=== PATIENT | male | born 1970 | race Two or more races ===

== ENCOUNTER 2016-09-23 20:10 | Emergency (ER) | payer MEDICAID, OTHER ==
[~2016-09-23] VITALS: Ht 172.7 cm; Wt 79.4 kg
--- NOTE | 2016-09-23 19:54 | Emergency Room Report ---
History of Present Illness General Chief Complaint: Alcohol Intoxication Source: Patient, EMS (Jacobo Brooks) Present Illness HPI Patient presented for altered mental status. The patient gradual onset of symptoms. Patient was noted to have recent alcohol intake. Patient had prior similar symptoms. Patient was brought in by EMS. (Jacobo Brooks) Allergies: Coded Allergies: No Known Allergies (Unverified , 01/09/16) Patient History Past Medical History: see triage record Reviewed Nursing Documentation: PMH: Agreed, PSxH: Agreed (Jacobo Brooks) Nursing Documentation-PMH Past Medical History: No History, Except For (Jacobo Brooks) Review of Systems All Other Systems: limited - by mental status (Jacobo Brooks) Physical Exam Vital Signs Date Time Temp Pulse Resp B/P Pulse Ox O2 Delivery O2 Flow Rate FiO2 09/23/16 19:40 86 18 131/80 99 Room Air Sp02 EP Interpretation: reviewed, normal General Appearance: normal inspection, well appearing, no apparent distress, alert, GCS 15, non-toxic Head: atraumatic ENT: normal ENT inspection, hearing grossly normal, normal voice Neck: normal inspection, full range of motion, supple, no bony tend Respiratory: normal inspection, lungs clear, normal breath sounds, no respiratory distress, no retraction, no wheezing Cardiovascular #1: regular rate, rhythm, no edema Gastrointestinal: normal inspection, normal bowel sounds, non tender, soft, no guarding, no hernia Genitourinary: no CVA tenderness Musculoskeletal: normal inspection, back normal, normal range of motion Neurologic: normal inspection, alert, oriented x3, responsive, speech normal Psychiatric: normal inspection, judgement/insight normal, mood/affect normal Skin: normal inspection, normal color, no rash (Jacobo Brooks) Medical Decision Making Diagnostic Impression: Primary Impression: Acute alcoholic intoxication ER Course Patient presented for altered mental status. Differential diagnosis included but was not limited to ischemic stroke, alcohol intoxication, subarachnoid hemorrhage, hypoglycemia, spinal cord injury, neurodegenerative disorder, urinary tract infection, hypoxemia. Patient appears be intoxicated with alcohol. Patient was observed in the emergency department. He had gradual improvement in his mental status. (Jacobo Brooks) ER Course Patient ambulated to bathroom without ataxia. Denies SI or HI. @ 4:20. (Mello Mauricio M.D.) Last Vital Signs Date Time Temp Pulse Resp B/P Pulse Ox O2 Delivery O2 Flow Rate FiO2 09/23/16 19:40 86 18 131/80 99 Room Air (Jacobo Brooks) Status: improved (Mello Mauricio M.D.) Disposition: HOME, SELF-CARE Condition: Improved Jacobo Brooks Sep 23, 2016 19:54 Mello Mauricio M.D. Sep 24, 2016 04:26
[~2016-09-23 20:10] MED LIST: RANITIDINE HCL150 MG ORAL; ZOFRAN ODT4 MG ORAL
[2016-09-24 01:04] LABS: MEAN CORPUSCULAR HEMOGLOBIN 32.6 PG (27.0-31.0); MEAN CORPUSCULAR HGB CONC 32.6 G/DL (32.0-36.0); MEAN CORPUSCULAR VOLUME 100 FL (80-99); MEAN PLATELET VOLUME 5.2 FL (6.5-10.1); PLATELET COUNT 256 K/UL (150-450); RED BLOOD COUNT 4.48 M/UL (4.70-6.10); RED CELL DISTRIBUTION WIDTH 13.6 % (11.6-14.8); WHITE BLOOD COUNT 3.7 K/UL (4.8-10.8)
[2016-09-24 01:17] LABS: ALANINE AMINOTRANSFERASE 60 U/L (3-41); ALBUMIN/GLOBULIN RATIO 1.6 (1.0-2.7); ANION GAP 20 (5-15); ASPARTATE AMINO TRANSFERASE 69 U/L (5-40); CALCIUM 8.7 mg/dL (8.6-10.2); CARBON DIOXIDE 25 mEQ/L (20-30); CHLORIDE 100 mEQ/L (98-107); CREATININE 0.8 mg/dL (0.7-1.2); GLOMERULAR FILTRATION RATE > 60 mL/min (>60); HEMOLYSIS 8; POTASSIUM 3.8 mEQ/L (3.4-4.9); SODIUM 145 mEQ/L (135-145); TOTAL PROTEIN 7.1 g/dL (6.6-8.7)
[2016-09-24 02:01] VITALS: BP 131/80
[2016-09-24 06:31] VITALS: BP 131/80
== END 2016-09-24 06:30 | disposition home or self-care (01) ==
LOC: EDBD 20:10 → EMR 22:02
DX: F10.129 Alcohol abuse with intoxication, unspecified (principal)
CPT/HCPCS: 36415; 80053; 80329; 85025; 96360

== ENCOUNTER 2016-12-21 09:55 | Emergency (ER) | payer OTHER ==
[~2016-12-21] VITALS: Ht 177.8 cm; Wt 68.0 kg
--- NOTE | 2016-12-21 10:10 | Emergency Room Report ---
History of Present Illness General Chief Complaint: Abdominal Pain Source: Patient, EMS Present Illness HPI This patient is brought in by EMS. He has a history of alcoholism and is homeless. He complains of abdominal pain in epigastric region for the past 5 or 6 hours. He admits that he did drink a large amount of alcohol. He is unsure how much. EMS report an empty bottle of vodka where they picked him up. Denies vomiting. He denies fever or chills. He has no other complaints. Allergies: Coded Allergies: No Known Allergies (Unverified , 01/09/16) Patient History Past Medical History: see triage record, HTN, other - ETOH abuse Social History: Reports: alcohol use, Denies: drug use, smoking Reviewed Nursing Documentation: PMH: Agreed, PSxH: Agreed Nursing Documentation-PMH Past Medical History: No History, Except For Hx Hypertension: Yes Review of Systems All Other Systems: negative except mentioned in HPI Physical Exam Vital Signs Date Time Temp Pulse Resp B/P Pulse Ox O2 Delivery O2 Flow Rate FiO2 12/21/16 09:48 97.5 56 16 143/87 98 Room Air Sp02 EP Interpretation: reviewed, normal General Appearance: no apparent distress, alert, GCS 15, non-toxic, other - Discheveled, poor hygiene Head: normocephalic, atraumatic Eyes: bilateral eye PERRL, bilateral eye normal inspection ENT: hearing grossly normal, normal pharynx, no angioedema, normal voice Neck: full range of motion, supple/symm/no masses Respiratory: chest non-tender, lungs clear, normal breath sounds, no respiratory distress, no retraction, no accessory muscle use, speaking full sentences Cardiovascular #1: regular rate, rhythm, no edema Gastrointestinal: normal bowel sounds, soft, non-distended, no guarding, no rebound, tenderness - TTP in the epigastrium Rectal: deferred Musculoskeletal: back normal, gait/station normal, normal range of motion, non- tender Neurologic: alert, oriented x3, responsive, motor strength/tone normal, sensory intact, speech normal Psychiatric: judgement/insight normal, memory normal, mood/affect normal, no suicidal/homicidal ideation Skin: normal color, no rash, warm/dry, well hydrated Medical Decision Making Diagnostic Impression: Primary Impression: Alcohol abuse Additional Impressions: Gastritis Transaminitis ER Course This patient is a homeless male who presents with epigastric pain after drinking a bottle of vodka. The patient was able to have a history and although smelled of alcohol and has poor hygiene was articulate and able to carry on a conversation. The history was most consistent with a gastritis or pancreatitis, I did obtain basic labs to include CBC, CMP and lipase which showed elevated liver function tests consistent with alcohol abuse. Lipase was within normal limits. The patient had improvement with treatment for gastritis with Mylanta making. The patient was instructed to decrease alcohol intake. At this time, I do not suspect appendicitis or serious bacterial infection. The patient's given return precautions and followup instructions. Patient is also given the local [facility] clinics and the local shelters. Labs Test 12/21/16 10:25 White Blood Count 4.1 K/UL (4.8-10.8) Red Blood Count 4.53 M/UL (4.70-6.10) Hemoglobin 14.8 G/DL (14.2-18.0) Hematocrit 46.1 % (42.0-52.0) Mean Corpuscular Volume 102 FL (80-99) Mean Corpuscular Hemoglobin 32.6 PG (27.0-31.0) Mean Corpuscular Hemoglobin Concent 32.1 G/DL (32.0-36.0) Red Cell Distribution Width 13.1 % (11.6-14.8) Platelet Count 102 K/UL (150-450) Mean Platelet Volume 6.1 FL (6.5-10.1) Neutrophils (%) (Auto) 60.3 % (45.0-75.0) Lymphocytes (%) (Auto) 32.7 % (20.0-45.0) Monocytes (%) (Auto) 6.0 % (1.0-10.0) Eosinophils (%) (Auto) 0.3 % (0.0-3.0) Basophils (%) (Auto) 0.7 % (0.0-2.0) Sodium Level 145 mEQ/L (135-145) Potassium Level 4.0 mEQ/L (3.4-4.9) Chloride Level 98 mEQ/L (98-107) Carbon Dioxide Level 32 mEQ/L (20-30) Anion Gap 15 (5-15) Blood Urea Nitrogen 13 mg/dL (7-23) Creatinine 0.8 mg/dL (0.7-1.2) Estimat Glomerular Filtration Rate > 60 mL/min (>60) Glucose Level 103 mg/dL (74-106) Calcium Level 9.0 mg/dL (8.6-10.2) Total Bilirubin 0.6 mg/dL (0.0-1.2) Aspartate Amino Transf (AST/SGOT) 179 U/L (5-40) Alanine Aminotransferase (ALT/SGPT) 172 U/L (3-41) Alkaline Phosphatase 96 U/L (40-129) Total Protein 7.4 g/dL (6.6-8.7) Albumin 4.2 g/dL (3.5-5.2) Globulin 3.2 g/dL Albumin/Globulin Ratio 1.3 (1.0-2.7) Lipase 54 U/L (< 60) Last Vital Signs Date Time Temp Pulse Resp B/P Pulse Ox O2 Delivery O2 Flow Rate FiO2 12/21/16 09:48 97.5 56 16 143/87 98 Room Air Disposition: HOME, SELF-CARE Condition: Improved Patient Instructions: Gastritis, Adult CHASE AGUIAR D.O. Dec 21, 2016 10:10
[2016-12-21] MEDS ORDERED: Lidocaine 2% Visc 15ml soln ORAL ONE (10:15)
[2016-12-21 10:40] LABS: BASOPHILS % (AUTO) 0.7 % (0.0-2.0); EOSINOPHILS % (AUTO) 0.3 % (0.0-3.0); LYMPHOCYTES % (AUTO) 32.7 % (20.0-45.0); MEAN CORPUSCULAR HEMOGLOBIN 32.6 PG (27.0-31.0); MEAN CORPUSCULAR HGB CONC 32.1 G/DL (32.0-36.0); MEAN CORPUSCULAR VOLUME 102 FL (80-99); MEAN PLATELET VOLUME 6.1 FL (6.5-10.1); NEUTROPHILS % (AUTO) 60.3 % (45.0-75.0); PLATELET COUNT 102 K/UL (150-450); RED BLOOD COUNT 4.53 M/UL (4.70-6.10); RED CELL DISTRIBUTION WIDTH 13.1 % (11.6-14.8); WHITE BLOOD COUNT 4.1 K/UL (4.8-10.8)
[2016-12-21 10:56] LABS: ALANINE AMINOTRANSFERASE 172 U/L (3-41); ALBUMIN/GLOBULIN RATIO 1.3 (1.0-2.7); ANION GAP 15 (5-15); ASPARTATE AMINO TRANSFERASE 179 U/L (5-40); CARBON DIOXIDE 32 mEQ/L (20-30); CHLORIDE 98 mEQ/L (98-107); CREATININE 0.8 mg/dL (0.7-1.2); GLOMERULAR FILTRATION RATE > 60 mL/min (>60); HEMOLYSIS 13; LIPASE 54 U/L (< 60); SODIUM 145 mEQ/L (135-145); TOTAL PROTEIN 7.4 g/dL (6.6-8.7)
[2016-12-21] MEDS ORDERED: PRILOSEC OTC20 MG ORAL (12:10)
[2016-12-21 13:07] VITALS: BP 1/1
[2016-12-22] MEDS ORDERED: NKM (20:04)
== END 2016-12-21 13:09 | disposition home or self-care (01) ==
LOC: EDBD 09:55 → EMR 10:18
DX: F10.10 Alcohol abuse, uncomplicated (principal); K29.00 Acute gastritis without bleeding; R74.0 Nonspecific elevation of levels of transaminase and lactic acid dehydrogenase [LDH]; I10 Essential (primary) hypertension; Z59.0 Homelessness
CPT/HCPCS: 36415; 80053; 83690; 85025; 99284

== ENCOUNTER 2016-12-22 20:02 | Emergency (ER) | payer OTHER ==
[~2016-12-22] VITALS: Ht 170.2 cm; Wt 74.8 kg
[~2016-12-22 20:02] MED LIST changes: +PRILOSEC OTC20 MG ORAL
[2016-12-22] MEDS ORDERED: NKM (20:04)
[2016-12-22 20:25] VITALS: BP 139/84
[2016-12-22] MEDS ORDERED: Lidocaine 2% Visc 15ml soln ORAL ONE (20:30)
[2016-12-22] MEDS ORDERED: Mylanta II UD 30ml ORAL ONE (20:30)
--- NOTE | 2016-12-22 20:45 | Emergency Room Report ---
History of Present Illness General Chief Complaint: Flu Like Symptoms Source: Patient Present Illness HPI [id number] [address] [facility]IBEMS with hiccups, abd pain, drinking alcohol. Denies trauma Denies fever/chills, chest pain, SOB, vomiting, diarrhea Was here yesterday for same Labs were unremarkable except for mild elevation LFTs, likly from ETOH chronic abuse Allergies: Coded Allergies: No Known Allergies (Unverified , 01/09/16) Patient History Past Medical History: none Past Surgical History: none Pertinent Family History: none Social History: Reports: alcohol use Immunizations: UTD Reviewed Nursing Documentation: PMH: Agreed, PSxH: Agreed Nursing Documentation-PMH Hx Hypertension: Yes Review of Systems All Other Systems: negative except mentioned in HPI Physical Exam Vital Signs Date Time Temp Pulse Resp B/P Pulse Ox O2 Delivery O2 Flow Rate FiO2 12/22/16 19:58 98.1 100 16 136/89 97 Room Air Sp02 EP Interpretation: reviewed, normal General Appearance: normal inspection, well appearing, no apparent distress, alert, GCS 15, non-toxic, other - +AOB, disheveled, malodorous Head: normocephalic, atraumatic Eyes: bilateral eye EOMI, bilateral eye PERRL ENT: normal ENT inspection, hearing grossly normal, normal voice Neck: normal inspection, full range of motion, supple, no bony tend Respiratory: normal inspection, lungs clear, normal breath sounds, no respiratory distress, no retraction, no wheezing Cardiovascular #1: regular rate, rhythm, no edema Gastrointestinal: normal inspection, normal bowel sounds, soft, no guarding, no hernia, other - mild epigastric ttp Genitourinary: no CVA tenderness Musculoskeletal: normal inspection, back normal, normal range of motion, Anuradha' s Sign negative Neurologic: normal inspection, alert, oriented x3, responsive, kosher inspector III-XII nml as tested, motor strength/tone normal, speech normal Psychiatric: normal inspection, judgement/insight normal, mood/affect normal Skin: normal inspection, normal color, no rash, warm/dry Lymphatic: normal inspection Medical Decision Making Diagnostic Impression: Primary Impression: Acute alcoholic intoxication Qualified Codes: F10.920 - Alcohol use, unspecified with intoxication, uncomplicated Additional Impression: Gastritis Qualified Codes: K29.20 - Alcoholic gastritis without bleeding ER Course Chronic episodic ETOH abuse Recurrent gastritis I see no reason to repeat labs done yesterday which were unremarkable VS stable again today Afebrile Atraumatic No sign of PNA, other infectious process Was given GI cocktail with improvement Endorsed to Dr Mauricio to DC with sobriety Last Vital Signs Date Time Temp Pulse Resp B/P Pulse Ox O2 Delivery O2 Flow Rate FiO2 12/22/16 20:28 61 16 Room Air 12/22/16 20:25 98.7 139/84 98 Status: improved Disposition: HOME, SELF-CARE MAURI MUÑOZ M.D. Dec 22, 2016 20:45
[2016-12-22 22:30] VITALS: BP 128/82
[2016-12-23 01:36] VITALS: BP 118/84
[2016-12-23 04:30] VITALS: BP 120/86
[2016-12-23 04:42] VITALS: BP 120/86
== END 2016-12-23 04:45 | disposition home or self-care (01) ==
LOC: EDBD 20:02 → EMR 20:30
DX: F10.129 Alcohol abuse with intoxication, unspecified (principal); K29.70 Gastritis, unspecified, without bleeding; I10 Essential (primary) hypertension
CPT/HCPCS: 99283

== ENCOUNTER 2017-11-13 14:52 | Emergency (ER) | payer OTHER ==
[~2017-11-13] VITALS: Ht 167.6 cm; Wt 70.3 kg
[~2017-11-13 14:52] MED LIST changes: +NKM
[2017-11-13 14:57] VITALS: BP 142/89
--- NOTE | 2017-11-13 15:21 | Emergency Room Report ---
History of Present Illness General Chief Complaint: Alcohol Intoxication Source: EMS Present Illness HPI 47-year-old male presents ED status post EtOH intoxication. Patient found on the streets. Bystanders called 911. Patient brought in by EMS. [place] [facility] [place] been here multiple times for alcohol intoxication. Per EMS patient had a few episodes of vomiting. Patient has dried blood from his left naris. Unclear whether patient sustained injury. Patient cannot provide any additional history at this time. Other aggravating relieving factors. No other associated symptoms Allergies: Coded Allergies: No Known Allergies (Unverified , 01/09/16) Patient History Past Medical History: HTN Past Surgical History: none Pertinent Family History: none Social History: Reports: alcohol use; Denies: smoking, drug use Immunizations: UTD Reviewed Nursing Documentation: PMH: Agreed; PSxH: Agreed Nursing Documentation-PMH Past Medical History: No History, Except For Hx Hypertension: Yes History Of Psychiatric Problem: Yes - etoh abuse Review of Systems All Other Systems: negative except mentioned in HPI Physical Exam Vital Signs Date Time Temp Pulse Resp B/P (MAP) Pulse Ox O2 Delivery O2 Flow Rate FiO2 11/13/17 14:48 98.6 70 20 142/89 94 Room Air 98.6 Sp02 EP Interpretation: reviewed, normal General Appearance: other - intoxicated Head: normocephalic, other - dried blood on left side of face, L nares ENT: normal ENT inspection Neck: normal inspection Respiratory: chest non-tender, lungs clear, normal breath sounds, speaking full sentences Cardiovascular #1: regular rate, rhythm, no edema Gastrointestinal: normal bowel sounds, non tender, soft, non-distended, no guarding, no rebound Rectal: deferred Genitourinary: no CVA tenderness Musculoskeletal: normal inspection Neurologic: other - intoxicated Psychiatric: other - intoxicated Skin: normal inspection Lymphatic: normal inspection Medical Decision Making Diagnostic Impression: Primary Impression: Acute alcoholic intoxication Qualified Codes: F10.929 - Alcohol use, unspecified with intoxication, unspecified ER Course Hospital Course 47 yo M presents to ED s/p ETOH intoxication. ? fall Clinical course Patient placed on stretcher. After initial history and physical I ordered IV fluids, Zofran, CT head CT head unremarkable Patient allowed to sleep. My assessment shows no evidence of SI/HI requiring psychiatric evaluation. Patient allowed to rest in now awake alert oriented x3. ambulating without difficulty. Diagnosis - ETOH intoxication stable and discharged to home. Followup with PMD. Return to ED if symptoms recur or worsen CT/MRI/US Diagnostic Results CT/MRI/US Diagnostic Results : Imaging Test Ordered: CT Head Impression no acute process Last Vital Signs Date Time Temp Pulse Resp B/P (MAP) Pulse Ox O2 Delivery O2 Flow Rate FiO2 11/13/17 14:57 70 20 142/89 94 Room Air 11/13/17 14:48 98.6 98.6 Status: improved Disposition: HOME, SELF-CARE Condition: Stable Referrals: [facility]ERR[facility] (PCP) Daron Croft MD Nov 13, 2017 15:21
--- NOTE | 2017-11-13 15:43 | Diagnostic Imaging Report ---
Indications: Altered mental status Technique: Spiral acquisitions obtained through the brain. Angled axial and coronal 5 x 5 mm slices were reconstructed. Total dose length product 1302.19 mGycm. CTDI vol(s) 70.38 mGy. Dose reduction achieved using automated exposure control Comparison: 05/31/2011 Findings: There is some image degradation due to patient motion artifact. There is bilateral frontal lobe cortical volume loss again demonstrated. This appears slightly progressive. No acute intracranial hemorrhage or edema, mass effect, nor midline shift. Normal duarte-white differentiation. Intact calvarium. There is bilateral maxillary sinus, left sphenoid, and minimal bilateral ethmoid sinus mucosal disease. There is minimal scalp contusion at the vertex bilaterally. Impression: Slightly limited exam due to motion artifact No evidence of acute intracranial bleed or mass effect Evidence of high bilateral frontal scalp soft tissue injury Bilateral frontal volume loss, out of proportion to age Sinus disease The CT scanner at [facility] is accredited by the [employer] and the scans are performed using protocols designed to limit radiation exposure to as low as reasonably achievable to attain images of sufficient resolution adequate for diagnostic evaluation.
[2017-11-13 21:11] VITALS: BP 138/79
== END 2017-11-13 19:05 | disposition home or self-care (01) ==
LOC: EDBD 14:52 → EMR 15:02
DX: F10.929 Alcohol use, unspecified with intoxication, unspecified (principal); I10 Essential (primary) hypertension
CPT/HCPCS: 70450; 96360; 96374; 96375; 99284; J2405

== ENCOUNTER 2018-08-16 16:04 | Emergency (ER) | payer OTHER ==
[~2018-08-16] VITALS: Ht 172.7 cm; Wt 74.8 kg
[2018-08-16 16:05] VITALS: BP 118/65
--- NOTE | 2018-08-16 16:05 | NUR ---
ED Nurse Note: Patient brought in by ambulance c/o ETOH, EMS state that they found the patient sleeping outide of ross to which the store operations associate called 911, upon arrival patient is sleeping. Patient's blood sugar was 90, notified
--- NOTE | 2018-08-16 16:40 | NUR ---
[place] [facility] [place] but no bed avilable at this time
--- NOTE | 2018-08-16 17:17 | Diagnostic Imaging Report ---
Indications: Altered mental status Technique: Spiral acquisitions obtained through the brain. Angled axial and coronal 5 x 5 mm slices were reconstructed. Total dose length product 1417.99 mGycm. CTDI vol(s) 70.38 mGy. Dose reduction achieved using automated exposure control Comparison: None. Findings: There is a subdural hematoma which measures up to 6 mm in thickness is overlying the left frontal and anterior parietal convexities, also extending slightly over the anterior left temporal lobe.. This is isoattenuating to white matter. This results in only minimal local mass effect, inwardly distressing the cortex slightly. No other acute intracranial hemorrhage. No edema or mass effect elsewhere. There is a small high left parietal scalp hematoma, just to the left of and posterior to the vertex There is generalized enlargement of the ventricles and extra axial CSF spaces which is somewhat striking for patient's age. The duarte-white differentiation is normal. Empty sella is incidentally noted. The calvarium is intact. The visualized orbits are unremarkable. There is minimal left-sided ethmoid and sphenoid sinus disease. The mastoids are clear. Impression: Positive for 6 mm thick subacute left convexity subdural hematoma. This results in local mass effect Cortical bone loss, out of proportion to age High left parietal scalp hematoma Critical value findings phoned to Dr. Croft in the emergency room at the time of interpretation The CT scanner at [facility] is accredited by the [employer] and the scans are performed using protocols designed to limit radiation exposure to as low as reasonably achievable to attain images of sufficient resolution adequate for diagnostic evaluation.
[2018-08-16 17:31] VITALS: BP 141/92
--- NOTE | 2018-08-16 17:35 | NUR ---
ED Nurse Note: Pt AOx2 (name/ place) at this time, present with slurred speech and delayed speech at times. Seisure precaution applied, monitor attached. Will cont to monitor.
--- NOTE | 2018-08-16 17:40 | NUR ---
ED Nurse Note: Blood drawn and sent to lab.
[2018-08-16 17:53] LABS: BASOPHILS % (AUTO) 1.4 % (0.0-2.0); EOSINOPHILS % (AUTO) 2.1 % (0.0-3.0); HEMATOCRIT 36.8 % (42.0-52.0); HEMOGLOBIN 11.9 G/DL (14.2-18.0); LYMPHOCYTES % (AUTO) 42.9 % (20.0-45.0); MEAN CORPUSCULAR VOLUME 95 FL (80-99); MONOCYTES % (AUTO) 4.8 % (1.0-10.0); NEUTROPHILS % (AUTO) 48.8 % (45.0-75.0); PLATELET COUNT 245 K/UL (150-450); RED BLOOD COUNT 3.85 M/UL (4.70-6.10); RED CELL DISTRIBUTION WIDTH 16.5 % (11.6-14.8); WHITE BLOOD COUNT 5.9 K/UL (4.8-10.8)
[2018-08-16 18:06] LABS: INR 0.9 (0.9-1.1)
[2018-08-16 18:14] LABS: ANION GAP 12 mmol/L (5-15); BLOOD UREA NITROGEN 11 mg/dL (7-18); CALCIUM 8.5 MG/DL (8.5-10.1); CARBON DIOXIDE 27 MMOL/L (21-32); CHLORIDE 109 MMOL/L (98-107); CREATININE 0.7 MG/DL (0.55-1.30); POTASSIUM 3.5 MMOL/L (3.5-5.1); SODIUM 148 MMOL/L (136-145)
[2018-08-16] MEDS ORDERED: levETIRAcetam 500 MG in D5W 110 ML IV ONE (18:15)
[2018-08-16 18:19] LABS: ALANINE AMINOTRANSFERASE 40 U/L (12-78); ALBUMIN 3.3 G/DL (3.4-5.0); ALBUMIN/GLOBULIN RATIO 0.9 (1.0-2.7); ALKALINE PHOSPHATASE 90 U/L (46-116); ASPARTATE AMINO TRANSFERASE 41 U/L (15-37); BILIRUBIN,TOTAL 0.2 MG/DL (0.2-1.0)
--- NOTE | 2018-08-16 18:59 | NUR ---
ED Nurse Note: Confirmed with ERMD that pt will be sent home when being sober.
--- NOTE | 2018-08-16 19:12 | NUR ---
HAND-OFF: Report given to TONY Dee. waiting for pt to be sober and dc home.
--- NOTE | 2018-08-16 19:30 | NUR ---
ED Nurse Note: RECIEVED REPORT TO RESUME CARE, PT IN BED SLEEPING, AROUSES TO TACTILE STIMULI, PT IS ON CARDIAC MONITORING, V/S STABLE, O2 SAT=98% ON 2L N/C, PT IS LETHARGIC AND DROWSY WHEN AWAKENED, DENEIS PAIN, NO SOB OR LABORED BREATHING NOTED, PT TO BE DISCHARGED WHEN AWAKENED AND SOBER, WILL CONTINUE TO CLOSELY MONITOR.
[2018-08-16 20:00] VITALS: BP 120/71
--- NOTE | 2018-08-16 20:06 | Emergency Room Report ---
History of Present Illness General Chief Complaint: Alcohol Intoxication Source: EMS Present Illness HPI 47-year-old male presents ED for evaluation. Patient brought in by EMS altered. Found on the ground with empty alcohol bottles today. Bystander called 911. Upon arrival patient is lethargic. No answer any questions. No signs of distress. No other aggravating relieving factors. No other associated symptoms Allergies: Coded Allergies: UNABLE TO ASSESS (Unverified , 08/16/18) Patient History Past Medical History: none Past Surgical History: none Pertinent Family History: none Social History: Reports: alcohol use; Denies: smoking, drug use Reviewed Nursing Documentation: PMH: Agreed; PSxH: Agreed Nursing Documentation-PMH Past Medical History Deferred: Patient Unconscious Review of Systems All Other Systems: limited Physical Exam Vital Signs Date Time Temp Pulse Resp B/P (MAP) Pulse Ox O2 Delivery O2 Flow Rate FiO2 08/16/18 15:59 98.1 88 16 118/65 98 08/16/18 17:31 Room Air Sp02 EP Interpretation: reviewed, normal General Appearance: no apparent distress, lethargic Head: normocephalic Eyes: bilateral eye normal inspection, bilateral eye PERRL ENT: normal ENT inspection Neck: normal inspection Respiratory: chest non-tender, lungs clear, normal breath sounds, speaking full sentences Cardiovascular #1: regular rate, rhythm, no edema Gastrointestinal: normal bowel sounds, non tender, soft, non-distended, no guarding, no rebound Rectal: deferred Genitourinary: no CVA tenderness Musculoskeletal: normal inspection Neurologic: other - intoxicated Psychiatric: other - intoxicated Skin: normal inspection Lymphatic: normal inspection Medical Decision Making Diagnostic Impression: Primary Impression: Acute alcoholic intoxication Qualified Codes: F10.929 - Alcohol use, unspecified with intoxication, unspecified Additional Impression: Subdural hematoma, chronic ER Course Hospital Course 48-year-old M presents to ED with altered mental status. Found down with alcohol bottles Differential diagnoses include: Psychosis, EtOH, drug abuse Clinical course patient placed on stretcher. On equipment monitor phototypesetting. After initial history and physical ordered CT head CT head shows chronic subdural with mass effect Patient has no focal neurological deficits, no obvious lateralizing signs. I ordered labs, IV fluids EKGnormal sinus rhythm no acute changes interpreted by me Labs reviewed-electrolytes okay, no leukocytosis, hemoglobin/hematocrit stable, ETOH elevated I discussed with neurosurgery at [facility]. They state that patient was admitted overnight for observation yesterday because of the chronic subdural finding. per neurosurgery, our CT findings are identical. Patient left AMA this morning before he could receive his Keppra prescription Given that this finding is chronic and patient has already received a 24-hour neuro observation I believe patient can be discharged once clinically sober. Given IV Keppra here i. I feel this is a highly complex case requiring extensive working including EKG/Rhythm strip, Xray/CT/US, Blood/urine lab work, repeat exams while in ED, and administration of strong opiates/narcotics for pain control, admission to hospital or close patient follow up. signed out to Dr Castellanos pending sobriety Labs Test 08/16/18 17:35 White Blood Count 5.9 K/UL (4.8-10.8) Red Blood Count 3.85 M/UL (4.70-6.10) Hemoglobin 11.9 G/DL (14.2-18.0) Hematocrit 36.8 % (42.0-52.0) Mean Corpuscular Volume 95 FL (80-99) Mean Corpuscular Hemoglobin 30.9 PG (27.0-31.0) Mean Corpuscular Hemoglobin Concent 32.3 G/DL (32.0-36.0) Red Cell Distribution Width 16.5 % (11.6-14.8) Platelet Count 245 K/UL (150-450) Mean Platelet Volume 5.3 FL (6.5-10.1) Neutrophils (%) (Auto) 48.8 % (45.0-75.0) Lymphocytes (%) (Auto) 42.9 % (20.0-45.0) Monocytes (%) (Auto) 4.8 % (1.0-10.0) Eosinophils (%) (Auto) 2.1 % (0.0-3.0) Basophils (%) (Auto) 1.4 % (0.0-2.0) Prothrombin Time 9.6 SEC (9.30-11.50) Prothromb Time International Ratio 0.9 (0.9-1.1) Activated Partial Thromboplast Time 23 SEC (23-33) Sodium Level 148 MMOL/L (136-145) Potassium Level 3.5 MMOL/L (3.5-5.1) Chloride Level 109 MMOL/L (98-107) Carbon Dioxide Level 27 MMOL/L (21-32) Anion Gap 12 mmol/L (5-15) Blood Urea Nitrogen 11 mg/dL (7-18) Creatinine 0.7 MG/DL (0.55-1.30) Estimat Glomerular Filtration Rate > 60 mL/min (>60) Glucose Level 99 MG/DL (74-106) Calcium Level 8.5 MG/DL (8.5-10.1) Total Bilirubin 0.2 MG/DL (0.2-1.0) Aspartate Amino Transf (AST/SGOT) 41 U/L (15-37) Alanine Aminotransferase (ALT/SGPT) 40 U/L (12-78) Alkaline Phosphatase 90 U/L (46-116) Total Protein 6.8 G/DL (6.4-8.2) Albumin 3.3 G/DL (3.4-5.0) Globulin 3.5 g/dL Albumin/Globulin Ratio 0.9 (1.0-2.7) Salicylates Level 1.2 ug/mL (2.8-20) Acetaminophen Level < 2 MCG/ML (10-30) Serum Alcohol 389 mg/dL CT/MRI/US Diagnostic Results CT/MRI/US Diagnostic Results : Imaging Test Ordered: CT Head Impression Positive for 6 mm thick subacute left convexity subdural hematoma. This results in local mass effect Last Vital Signs Date Time Temp Pulse Resp B/P (MAP) Pulse Ox O2 Delivery O2 Flow Rate FiO2 08/16/18 17:31 98 20 141/92 99 Room Air 08/16/18 16:05 98.1 Signed Out To: Dr Castellanos Referrals: [facility] (PCP) Daron Croft MD Aug 16, 2018 20:06
--- NOTE | 2018-08-16 22:30 | NUR ---
ED Nurse Note: PT CONTINUES TO SLEEP IN BED, AROUSES TO TACTILE STIMULI AND REMAINS VERY LETHARGIC LIKE AND DROWSY, PT ON CARDIAC MONITORING, IV SITE PATENT, NO ACUTE CHANGES OR INCREASED DISTRESS, WILL CONTINUE TO MONITOR AND D/C WHEN SOBER.
[2018-08-16 23:00] VITALS: BP 128/78
--- NOTE | 2018-08-17 00:15 | NUR ---
ED Nurse Note: PT ROOM CHANGED TO TREATMENT AREA, PT IS IN BED SLEPING, AROUSES TO TACTILE STIMULI, NO SOB OR LABORED BREATHING, IV SITE PATENT, V/S STABLE, REPORT GIVEN TO TONY TOLEDO TO RESUME CARE.
--- NOTE | 2018-08-17 00:16 | NUR ---
ED Nurse Note: Received report from Leila/RN. Pt is A/TAMI 3. VSS. Waiting for d/c.
[2018-08-17] MEDS ORDERED: KEPPRA500 M4 ORAL (01:02)
[2018-08-17 05:28] VITALS: BP 124/76
--- NOTE | 2018-08-17 05:28 | NUR ---
ER DISCHARGE NOTE: Patient is cleared to be discharged per Dr. Castellanos. Meds given as ordered. Pt is A/O x4 on room air with stable vital signs. Pt was given dc and prescription instructions, pt was able to verbalize understanding, pt id band and IV removed . pt is able to ambulate with steady gait, pt took all belongings. Pt left prescription papers.
== END 2018-08-17 05:28 | disposition home or self-care (01) ==
LOC: EDBD → MERGE 17:32 → EDBD 17:32 → EMR 17:32
DX: R41.82 Altered mental status, unspecified (principal); S06.5X0A Traumatic subdural hemorrhage without loss of consciousness, initial encounter; F10.129 Alcohol abuse with intoxication, unspecified; X58.XXXA Exposure to other specified factors, initial encounter
CPT/HCPCS: 36415; 70450; 80053; 80329; 82962; 85025; 85610; 85730; 93005; 96361; 96374; 99284; J1953

== ENCOUNTER 2018-08-19 18:51 | Emergency (ER) | payer OTHER ==
[~2018-08-19] VITALS: Ht 180.3 cm; Wt 86.2 kg
--- NOTE | 2018-08-19 18:39 | NUR ---
ED Nurse Note: Pt BIBA from [facility] due to ALOC. Pt was apparently sitting on the chair and refused to speak with anyone. Pt smelled of alcohol. Pin point pupils. Skin warm to touch. VSS.
[2018-08-19 18:41] VITALS: BP 139/85
[~2018-08-19 18:51] MED LIST changes: +KEPPRA500 M4 ORAL
--- NOTE | 2018-08-19 19:14 | NUR ---
HAND-OFF: Report given to TONY Polanco.
--- NOTE | 2018-08-19 19:15 | NUR ---
ED Nurse Note: Received report from Calvin/TONY. Pt is a/o x3-4. Persian speaker, will continue to monitor.
--- NOTE | 2018-08-19 19:38 | Emergency Room Report ---
History of Present Illness General Chief Complaint: Altered Level of Consciousness Source: EMS Present Illness HPI Patient was found by the [id number] altered. Patient has a history of alcohol abuse. Patient offers no history whatsoever. The patient is staring at me. He does not follow commands. I see no signs of trauma.. Allergies: Coded Allergies: No Known Allergies (Unverified , 01/09/16) UNABLE TO ASSESS (Unverified , 08/19/18) Patient History Limited by: medical condition Past Surgical History: unable to obtain Pertinent Family History: unable to obtain Nursing Documentation-[facility] Past Medical History: No Stated History Hx Hypertension: Yes Review of Systems All Other Systems: limited Physical Exam Vital Signs Date Time Temp Pulse Resp B/P (MAP) Pulse Ox O2 Delivery O2 Flow Rate FiO2 08/19/18 18:25 68 16 137/90 97 Room Air 08/19/18 18:41 98.1 08/19/18 18:41 98 General Appearance: normal inspection Head: normocephalic, atraumatic Neck: full range of motion Respiratory: lungs clear Cardiovascular #1: regular rate, rhythm, no edema Neurologic: other - unable to assess Procedures Critical Care Time Critical Care Time I spent 30 minutes of critical care time on this patient. This did not included seeing other patients or procedures. I spent time with the previous records, discussing with consultants, multiple bedside evaluations for potentially very critical patient. Medical Decision Making Diagnostic Impression: Primary Impression: Subdural bleeding ER Course Patient has had multiple bedside evaluations. His neurological examination is unchanged. CT was reviewed. There is no significant change from a previous CT that was done as well. However, very concerned about possibility of underlying seizures. I discussed this with the [facility] neurosurgeon, Dr. Mckeon, who was accepted for transfer. Risk and benefits were considered. The patient will need to be transferred due to high level of care. The patient has been started on a dose of IV Keppra for seizure prevention. Laboratory Tests Test 08/19/18 19:29 08/19/18 19:49 08/19/18 20:11 White Blood Count 5.2 K/UL (4.8-10.8) Red Blood Count 4.01 M/UL (4.70-6.10) L Hemoglobin 12.2 G/DL (14.2-18.0) L Hematocrit 37.6 % (42.0-52.0) L Mean Corpuscular Volume 94 FL (80-99) Mean Corpuscular Hemoglobin 30.4 PG (27.0-31.0) Mean Corpuscular Hemoglobin Concent 32.3 G/DL (32.0-36.0) Red Cell Distribution Width 16.7 % (11.6-14.8) H Platelet Count 225 K/UL (150-450) Mean Platelet Volume 5.3 FL (6.5-10.1) L Neutrophils (%) (Auto) 53.6 % (45.0-75.0) Lymphocytes (%) (Auto) 40.8 % (20.0-45.0) Monocytes (%) (Auto) 3.6 % (1.0-10.0) Eosinophils (%) (Auto) 1.1 % (0.0-3.0) Basophils (%) (Auto) 1.0 % (0.0-2.0) Sodium Level 150 MMOL/L (136-145) H Potassium Level 3.5 MMOL/L (3.5-5.1) Chloride Level 108 MMOL/L (98-107) H Carbon Dioxide Level 33 MMOL/L (21-32) H Anion Gap 9 mmol/L (5-15) Blood Urea Nitrogen 9 mg/dL (7-18) Creatinine 0.7 MG/DL (0.55-1.30) Estimate Glomerular Filtration Rate > 60 mL/min (>60) Glucose Level 118 MG/DL (74-106) H Calcium Level 8.4 MG/DL (8.5-10.1) L Total Bilirubin 0.2 MG/DL (0.2-1.0) Aspartate Amino Transferase (AST) 41 U/L (15-37) H Alanine Aminotransferase (ALT) 43 U/L (12-78) Alkaline Phosphatase 95 U/L (46-116) Total Protein 7.1 G/DL (6.4-8.2) Albumin 3.6 G/DL (3.4-5.0) Globulin 3.5 g/dL Albumin/Globulin Ratio 1.0 (1.0-2.7) Salicylates Level 1.1 ug/mL (2.8-20) L Acetaminophen Level < 2 MCG/ML (10-30) L Serum Alcohol 461 mg/dL Urine Opiates Screen Negative (NEGATIVE) Urine Barbiturates Screen Negative (NEGATIVE) Phencyclidine (PCP) Screen Negative (NEGATIVE) Urine Amphetamines Screen Negative (NEGATIVE) Urine Benzodiazepines Screen Negative (NEGATIVE) Urine Cocaine Screen Negative (NEGATIVE) Urine Marijuana (THC) Screen Negative (NEGATIVE) Ammonia 21 umol/L (11-32) Last Vital Signs Date Time Temp Pulse Resp B/P (MAP) Pulse Ox O2 Delivery O2 Flow Rate FiO2 08/19/18 18:41 77 15 Room Air 98 08/19/18 18:41 98.1 139/85 98 Disposition: XFER SHT-TRM HOSP Condition: Critical Referrals: [facility],REFERR[facility] (PCP) APRIL WETZEL Aug 19, 2018 19:38
[2018-08-19 19:53] LABS: ANION GAP 9 mmol/L (5-15); BLOOD UREA NITROGEN 9 mg/dL (7-18); CALCIUM 8.4 MG/DL (8.5-10.1); CARBON DIOXIDE 33 MMOL/L (21-32); CHLORIDE 108 MMOL/L (98-107); CREATININE 0.7 MG/DL (0.55-1.30); POTASSIUM 3.5 MMOL/L (3.5-5.1); SODIUM 150 MMOL/L (136-145)
[2018-08-19 19:58] LABS: EOSINOPHILS % (AUTO) 1.1 % (0.0-3.0); HEMATOCRIT 37.6 % (42.0-52.0); HEMOGLOBIN 12.2 G/DL (14.2-18.0); LYMPHOCYTES % (AUTO) 40.8 % (20.0-45.0); MEAN CORPUSCULAR VOLUME 94 FL (80-99); MONOCYTES % (AUTO) 3.6 % (1.0-10.0); NEUTROPHILS % (AUTO) 53.6 % (45.0-75.0); PLATELET COUNT 225 K/UL (150-450); RED BLOOD COUNT 4.01 M/UL (4.70-6.10); RED CELL DISTRIBUTION WIDTH 16.7 % (11.6-14.8); WHITE BLOOD COUNT 5.2 K/UL (4.8-10.8)
[2018-08-19 19:59] LABS: ALANINE AMINOTRANSFERASE 43 U/L (12-78); ALBUMIN 3.6 G/DL (3.4-5.0); ALKALINE PHOSPHATASE 95 U/L (46-116); ASPARTATE AMINO TRANSFERASE 41 U/L (15-37); BILIRUBIN,TOTAL 0.2 MG/DL (0.2-1.0)
--- NOTE | 2018-08-19 20:20 | NUR ---
ED Nurse Note: Pt is OK to be transported by ALS (vs 911) per Dr. Reed.
[2018-08-19] MEDS ORDERED: levETIRAcetam 1,000mg/NS100ml 100 ML IVPB ONE (21:00)
--- NOTE | 2018-08-19 22:00 | NUR ---
ED Nurse Note: Dr. Reed is OK with ambulance ETA (2300); other ambulances called, ETA is longer.
[2018-08-19 22:53] LABS: INR 0.9 (0.9-1.1)
[2018-08-19 23:04] VITALS: BP 123/81
--- NOTE | 2018-08-19 23:04 | NUR ---
TRANSFER TO [facility]: Ambulance arrived. Patient transferred to [facility], Room 8s68 as ordered . Report given to [place]/TONY. Belongings and package sent with Pt and rechecked with EMS. Pt is A/O X4. VSS.
--- NOTE | 2018-08-20 11:40 | Diagnostic Imaging Report ---
Indications: Altered level of consciousness Technique: Spiral acquisitions obtained through the brain. Angled axial and coronal 5 x 5 mm slices were reconstructed. Total dose length product 1457.02 mGycm. CTDI vol(s) 70.38 mGy. Dose reduction achieved using automated exposure control Comparison: 11/13/2017 Findings: Interim development of a left convexity subdural hematoma. This is mixed in attenuation, mostly high but with some more slightly hypoattenuating areas anteriorly. This measures up to 7 mm in thickness. It results in slight midline shift of about 2 mm. No other acute intracranial hemorrhage or edema. There is age-related volume loss, predominantly in the frontal and anterior parietal cortical regions. Otherwise normal duarte-white differentiation. Intact calvarium. The mastoids are clear. The sinuses are clear. Previously demonstrated sinus disease is no longer evident. There is incidental finding of empty sella Impression: 7 mm thick left convexity mostly acute subdural hematoma, resulting in minimal mass effect as described. Cortical volume loss, advanced for age, also previously described No evidence of calvarial fracture Critical value findings discussed with emergency room physician by Dr. Seth lopez. Findings are in agreement with his and written preliminary report The CT scanner at [facility] is accredited by the [employer] and the scans are performed using protocols designed to limit radiation exposure to as low as reasonably achievable to attain images of sufficient resolution adequate for diagnostic evaluation.
== END 2018-08-19 23:04 | disposition short-term general hospital (02) ==
LOC: EDBD 18:51 → EMR 19:31
DX: I62.00 Nontraumatic subdural hemorrhage, unspecified (principal); I10 Essential (primary) hypertension; F10.10 Alcohol abuse, uncomplicated
CPT/HCPCS: 36415; 70450; 80053; 80307; 80329; 82140; 85025; 85610; 85730; 96361; 96374; 99291; J1953

== ENCOUNTER 2019-12-21 21:49 | Emergency (ER) | payer MEDICAID, OTHER ==
[~2019-12-21] VITALS: Ht 172.7 cm; Wt 77.1 kg
[2019-12-21 22:00] VITALS: BP 148/89
[2019-12-21] MEDS ORDERED: Pantoprazole Inj IV ONE (22:00)
--- NOTE | 2019-12-21 22:00 | Emergency Room Report ---
History of Present Illness General Chief Complaint: Alcohol Intoxication Source: Patient, EMS Present Illness HPI Disclaimer: Please note that this report is being documented using DRAGON technology. This can lead to erroneous entry secondary to incorrect interpretation by the dictating instrument. HPI: 49-year-old male with no reported medical history presents for evaluation of alcohol intoxication and vomiting. Patient states he drank approximately 1 pint of vodka today. He has a history of alcohol abuse. Denies history of GI bleeds in the past, abdominal injury, abdominal surgeries. He states he has been vomiting throughout the day with several episodes of blood-tinged emesis. Denies bibi hematemesis. Reports persistent nausea but no further vomiting. Reports cramping in the abdomen. Denies fever or chills. Denies exacerbating or relieving factors. Currently takes no medication. Denies anticoagulant use. PMH: Alcohol abuse PSH: Denied Allergies: Denied Social Hx: Alcohol abuse Allergies: Coded Allergies: No Known Allergies (Unverified , 01/09/16) COVID-19 Screening Contact w/high risk pt: No Experienced COVID-19 symptoms?: No COVID-19 Testing performed COPY CHIEF: No Nursing Documentation-PMH Past Medical History: No Stated History Hx Hypertension: Yes Review of Systems All Other Systems: negative except mentioned in HPI Physical Exam Vital Signs Date Time Temp Pulse Resp B/P (MAP) Pulse Ox O2 Delivery O2 Flow Rate FiO2 12/21/19 21:49 98.2 90 16 155/89 (111) 99 Room Air General: Awake and alert, appears mildly intoxicated HEENT: NC/AT. EOMI. Cardiovascular: RRR. S1 and S2 normal. No murmur appreciated Resp: Normal work of breathing. No cough, wheezing or crackles appreciated Abdomen: Abdomen is soft, nondistended. Mild epigastric tenderness. Skin: Intact. No abrasions, laceration or rash over the exposed skin MSK: Normal tone and bulk. Moving all extremities. No obvious deformity. Neuro: Awake and alert. Mentating appropriately. Medical Decision Making Diagnostic Impression: Primary Impression: Gastritis Additional Impression: Acute alcoholic intoxication ER Course There is a 49-year-old male presenting for evaluation of alcohol intoxication, abdominal cramping and reported blood-tinged emesis. Differential includes was not limited to acute alcohol intoxication, gastritis, gastroenteritis, pancreatitis, Doreen-Vizcarra tear, peptic ulcer, duodenal ulcer, GERD to name a few. Patient appears slightly intoxicated but is awake and alert answering questions appropriately. Denies anticoagulant use. Will obtain labs to evaluate CBC for active bleed with the patient is not currently vomiting or other stable vital signs. Will provide IV hydration, IV Protonix, antiemetics. 2330: Labs have returned within normal limits. Hemoglobin adequate at 11.7 with normal MCV and platelet count. INR 0.9. Chemistry unremarkable. Lipase within normal limits; no evidence of acute pancreatitis. No further emesis in the ED. Patient is sleeping comfortably. Will allow to metabolize in the ED and reevaluate for final disposition. 0600: Patient slept in the emergency department overnight. He is now clinically sober and ambulating with a steady gait. No further emesis noted. He will be discharged to follow-up on outpatient basis. Counseled him on dangers of alcohol abuse. Prescribed thiamine, folate and symptomatic medications. He is instructed to return to the ED with any new or worsening symptoms. Laboratory Tests Test 12/21/19 22:30 12/21/19 23:00 Prothrombin Time 10.0 SEC (9.30-11.50) Prothrombin Time INR 0.9 (0.9-1.1) Activated Partial Thromboplast Time 20 SEC (23-33) L Sodium Level 148 MMOL/L (136-145) H Potassium Level 3.6 MMOL/L (3.5-5.1) Chloride Level 110 MMOL/L (98-107) H Carbon Dioxide Level 28 MMOL/L (21-32) Anion Gap 10 mmol/L (5-15) Blood Urea Nitrogen 9 mg/dL (7-18) Creatinine 0.8 MG/DL (0.55-1.30) Estimated Glomerular Filtration Rate > 60 mL/min (>60) Glucose Level 100 MG/DL (74-106) Calcium Level 8.1 MG/DL (8.5-10.1) L Total Bilirubin 0.2 MG/DL (0.2-1.0) Aspartate Amino Transferase (AST) 31 U/L (15-37) Alanine Aminotransferase (ALT) 27 U/L (12-78) Alkaline Phosphatase 90 U/L (46-116) Total Protein 7.0 G/DL (6.4-8.2) Albumin 3.8 G/DL (3.4-5.0) Globulin 3.2 g/dL Albumin/Globulin Ratio 1.2 (1.0-2.7) Lipase 225 U/L (73-393) White Blood Count 5.0 K/UL (4.8-10.8) Red Blood Count 3.99 M/UL (4.70-6.10) L Hemoglobin 11.7 G/DL (14.2-18.0) L Hematocrit 36.5 % (42.0-52.0) L Mean Corpuscular Volume 92 FL (80-99) Mean Corpuscular Hemoglobin 29.4 PG (27.0-31.0) Mean Corpuscular Hemoglobin Concent 32.2 G/DL (32.0-36.0) Red Cell Distribution Width 16.6 % (11.6-14.8) H Platelet Count 201 K/UL (150-450) Mean Platelet Volume 5.6 FL (6.5-10.1) L Neutrophils (%) (Auto) 40.3 % (45.0-75.0) L Lymphocytes (%) (Auto) 50.1 % (20.0-45.0) H Monocytes (%) (Auto) 5.3 % (1.0-10.0) Eosinophils (%) (Auto) 3.0 % (0.0-3.0) Basophils (%) (Auto) 1.3 % (0.0-2.0) Last Vital Signs Date Time Temp Pulse Resp B/P (MAP) Pulse Ox O2 Delivery O2 Flow Rate FiO2 12/21/19 21:49 98.2 90 16 155/89 (111) 99 Room Air Disposition: HOME, SELF-CARE Condition: Stable Scripts Folic Acid* (FOLIC ACID*) 1 Mg Tablet 1 MG ORAL DAILY, #30 TAB Prov: Romero Olea MD 12/21/19 Thiamine Hcl* (VITAMIN B-1*) 100 Mg Tablet 100 MG ORAL DAILY, #30 TAB 0 Refills Prov: Romero Olea MD 12/21/19 Ondansetron Odt* (ZOFRAN ODT*) 4 Mg Tab.rapdis 4 MG BC EVERY 6 HOURS PRN for Nausea & Vomiting, #10 TAB 0 Refills Prov: Romero Olea MD 12/21/19 Omeprazole Magnesium (PRILOSEC OTC) 20 Mg Tablet.dr 20 MG ORAL DAILY, #30 TAB Prov: Romero lOea MD 12/21/19 Ranitidine Hcl* (ZANTAC*) 150 Mg Tablet 150 MG ORAL TWICE A DAY, #30 TAB Prov: Romero Olea MD 12/21/19 Romero Olea MD Dec 21, 2019 22:00
[2019-12-21 22:59] LABS: ANION GAP 10 mmol/L (5-15); BLOOD UREA NITROGEN 9 mg/dL (7-18); CALCIUM 8.1 MG/DL (8.5-10.1); CARBON DIOXIDE 28 MMOL/L (21-32); CHLORIDE 110 MMOL/L (98-107); CREATININE 0.8 MG/DL (0.55-1.30); POTASSIUM 3.6 MMOL/L (3.5-5.1); SODIUM 148 MMOL/L (136-145)
[2019-12-21 23:01] LABS: INR 0.9 (0.9-1.1)
[2019-12-21 23:04] LABS: ALANINE AMINOTRANSFERASE 27 U/L (12-78); ALBUMIN 3.8 G/DL (3.4-5.0); ALBUMIN/GLOBULIN RATIO 1.2 (1.0-2.7); ALKALINE PHOSPHATASE 90 U/L (46-116); ASPARTATE AMINO TRANSFERASE 31 U/L (15-37); BILIRUBIN,TOTAL 0.2 MG/DL (0.2-1.0)
[2019-12-21 23:08] LABS: BASOPHILS % (AUTO) 1.3 % (0.0-2.0); HEMATOCRIT 36.5 % (42.0-52.0); HEMOGLOBIN 11.7 G/DL (14.2-18.0); LYMPHOCYTES % (AUTO) 50.1 % (20.0-45.0); MEAN CORPUSCULAR VOLUME 92 FL (80-99); MONOCYTES % (AUTO) 5.3 % (1.0-10.0); NEUTROPHILS % (AUTO) 40.3 % (45.0-75.0); PLATELET COUNT 201 K/UL (150-450); RED BLOOD COUNT 3.99 M/UL (4.70-6.10); RED CELL DISTRIBUTION WIDTH 16.6 % (11.6-14.8)
[2019-12-21] MEDS ORDERED: RANITIDINE HCL150 MG ORAL (23:15)
[2019-12-21] MEDS ORDERED: PRILOSEC OTC20 MG ORAL (23:15)
[2019-12-21] MEDS ORDERED: VITAMIN B-1100 MG ORAL (23:15)
[2019-12-21] MEDS ORDERED: ONDANSETRON ODT4 MG BC (23:15)
[2019-12-21] MEDS ORDERED: FOLIC ACID1 MG ORAL (23:15)
[2019-12-22 00:10] VITALS: BP 135/78
[2019-12-22 02:00] VITALS: BP 131/76
[2019-12-22 06:14] VITALS: BP 118/82
== END 2019-12-22 06:06 | disposition home or self-care (01) ==
LOC: EDBD 21:49 → EDUNIT# 21:49 → EMR 22:02
DX: F10.129 Alcohol abuse with intoxication, unspecified (principal); K29.70 Gastritis, unspecified, without bleeding; I10 Essential (primary) hypertension
CPT/HCPCS: 36415; 80053; 83690; 85025; 85610; 85730; 96361; 96374; 96375; G0480; J2405; J7030; S0164; Z7502; 99284